=== PATIENT | male | born 1995 | race Caucasian/White ===

== ENCOUNTER 2016-09-25 03:28 | Emergency (ER) | payer MEDICAID | END 2016-09-25 04:16 | disposition home or self-care (01) | LOC: D.ER 03:28 | DX: J45.909 Unspecified asthma, uncomplicated (principal); F17.200 Nicotine dependence, unspecified, uncomplicated; R05 Cough; R11.0 Nausea ==

== ENCOUNTER 2017-11-01 19:52 | Emergency (ER) | payer SELFPAY | END 2017-11-01 21:27 | disposition home or self-care (01) | LOC: D.ER 19:52 | DX: M54.9 Dorsalgia, unspecified (principal); F17.200 Nicotine dependence, unspecified, uncomplicated ==

== ENCOUNTER 2018-03-07 21:46 | Emergency (ER) | payer SELFPAY ==
[~2018-03-07] VITALS: Ht 177.8 cm; Wt 79.5 kg
[~2018-03-07 21:46] MED LIST: HYDROCORTISONE30 G8 TOPICAL; KEFLEX500 MG PO
[2018-03-07 21:52] VITALS: Ht 177.8 cm; Wt 79.5 kg
[2018-03-08 00:22] VITALS: BP 128/74
== END 2018-03-08 00:22 | disposition home or self-care (01) ==
LOC: D.ER 21:46
DX: S70.361A Insect bite (nonvenomous), right thigh, initial encounter (principal); W57.XXXA Bitten or stung by nonvenomous insect and other nonvenomous arthropods, initial encounter; Y93.9 Activity, unspecified; Y92.019 Unspecified place in single-family (private) house as the place of occurrence of the external cause; F17.200 Nicotine dependence, unspecified, uncomplicated

== ENCOUNTER 2018-07-10 23:40 | Emergency (ER) | payer SELFPAY ==
[~2018-07-10] VITALS: Ht 177.8 cm; Wt 79.5 kg
[2018-07-10 23:40] VITALS: Ht 177.8 cm; Wt 79.5 kg
[2018-07-11] MEDS ORDERED: TORADOL10 MG PO (00:39)
[2018-07-11] MEDS ORDERED: CYCLOBENZAPRINE10 MG PO (01:33)
[2018-07-11 01:40] VITALS: BP 134/85
== END 2018-07-11 01:40 | disposition home or self-care (01) ==
LOC: D.ER 23:40
DX: M54.2 Cervicalgia (principal); R51 Headache; M25.511 Pain in right shoulder; V49.9XXA Car occupant (driver) (passenger) injured in unspecified traffic accident, initial encounter; Y93.89 Activity, other specified; Y92.410 Unspecified street and highway as the place of occurrence of the external cause; F17.200 Nicotine dependence, unspecified, uncomplicated

== ENCOUNTER 2018-09-28 20:08 | Emergency (ER) | payer SELFPAY ==
[~2018-09-28] VITALS: Ht 177.8 cm; Wt 77.1 kg
[~2018-09-28 20:08] MED LIST changes: +CYCLOBENZAPRINE10 MG PO; +TORADOL10 MG PO
[2018-09-28 20:29] VITALS: Ht 177.8 cm; Wt 77.1 kg
[2018-09-28] MEDS ORDERED: NAPROSYN500 MG PO (21:58)
[2018-09-28 22:10] VITALS: BP 133/89
== END 2018-09-28 22:10 | disposition home or self-care (01) ==
LOC: D.ER 20:08
DX: S06.0X0A Concussion without loss of consciousness, initial encounter (principal); Y04.2XXA Assault by strike against or bumped into by another person, initial encounter; Y93.89 Activity, other specified; Y92.89 Other specified places as the place of occurrence of the external cause; S43.401A Unspecified sprain of right shoulder joint, initial encounter; F17.200 Nicotine dependence, unspecified, uncomplicated

== ENCOUNTER 2018-10-31 22:41 | Emergency (ER) | payer MEDICAID ==
[~2018-10-31] VITALS: Ht 177.8 cm; Wt 72.7 kg
[~2018-10-31 22:41] MED LIST changes: +NAPROSYN500 MG PO
[2018-10-31 22:44] VITALS: Ht 177.8 cm; Wt 72.7 kg
[2018-10-31 23:02] LABS: APPEARANCE CLEAR (CLEAR); BILIRUBIN NEGATIVE (NEGATIVE); COLOR COLORLESS (YELLOW); GLUCOSE NEGATIVE (NEGATIVE); KETONE NEGATIVE (NEGATIVE); NITRITE NEGATIVE (NEGATIVE); PROTEIN NEGATIVE (NEGATIVE); SPECIFIC GRAVITY 1.005 (1.005-1.020); UROBILINOGEN NORMAL (NORMAL)
[2018-10-31 23:10] LABS: BASOPHILS 0.5 % (0-2); EOSINOPHILS 1.5 % (0-7); HEMATOCRIT 42.7 % (42.0-54.0); HEMOGLOBIN 14.3 g/dL (13.5-17.5); IMMATURE GRANULOCYTES 0.2 % (0-5); LYMPHOCYTES 34.3 % (15-50); MCH 30.8 pg (26.0-34.0); MCHC 33.5 g/dL (31.0-37.0); MEAN PLATELET VOLUME 10.6 fL (7.4-10.4); NEUTROPHILS 56.5 % (40-80); PLATELET COUNT 183 10x3/uL (130-400); RBC 4.64 10x6/uL (4.20-6.10); RDW 14.1 % (11.5-14.5); WBC 10.3 10x3/uL (4.8-10.8)
[2018-10-31 23:12] LABS: UDS - AMPHET NEGATIVE QUAL (NEGATIVE); UDS - BARB NEGATIVE QUAL (NEGATIVE); UDS - BENZO NEGATIVE QUAL (NEGATIVE); UDS - COCAINE NEGATIVE QUAL (NEGATIVE); UDS - OPIATE NEGATIVE QUAL (NEGATIVE); UDS - PCP NEGATIVE QUAL (NEGATIVE); UDS - THC POSITIVE QUAL (NEGATIVE)
[2018-10-31 23:19] LABS: CALC OSMOLALITY 288 mosm/kg (275-300); CALCIUM 8.7 mg/dL (8.5-10.1); CARBON DIOXIDE 27.5 mmol/L (21.0-32.0); CHLORIDE - SERUM 108 mmol/L (98-107); CREATININE - SERUM 0.8 mg/dL (0.6-1.3); GLUCOSE 82 mg/dL (74-106); SODIUM 147 mmol/L (136-145); UREA NITROGEN 8 mg/dL (7-18); eGFR NON AFRICAN AMERICAN > 90 mL/min (90-120)
[2018-11-01] MEDS ORDERED: ALBUTEROL SULF8.5 GM INH (00:25)
[2018-11-01 00:30] VITALS: BP 118/80
== END 2018-11-01 00:30 | disposition home or self-care (01) ==
LOC: D.ER 22:41
PROVIDERS: Emergency Medicine
DX: F41.0 Panic disorder [episodic paroxysmal anxiety] (principal); F17.200 Nicotine dependence, unspecified, uncomplicated; G40.909 Epilepsy, unspecified, not intractable, without status epilepticus; Z86.59 Personal history of other mental and behavioral disorders